=== PATIENT | female | born 1935 | race Caucasian/White ===

== ENCOUNTER 2016-11-17 09:23 | Emergency (ER) | payer MEDICARE ==
[~2016-11-17] VITALS: Ht 172.7 cm; Wt 62.0 kg
[~2016-11-17 09:23] MED LIST: ASPI325T PO; CITA20TA4 PO; CYMB30CA PO; DOXE10 PO; FISH1000 PO; LANTUSP SQ; LIPI40TA PO; LISI-366 PO; OMPR20CCR PO
[2016-11-17 09:27] VITALS: BP 139/66; PULSE 66; RESP 18; TEMP 97.7; O2SAT 100
[2016-11-17] MEDS ORDERED: LEVEMIR SQ (10:03)
[2016-11-17] MEDS ORDERED: TRAZ50TA12 PO (10:03)
[2016-11-17] MEDS ORDERED: ASPI81TA81 PO (10:03)
[2016-11-17] MEDS ORDERED: ASPI81CH CHEW (10:03)
[2016-11-17] MEDS ORDERED: LIPI40TA PO (10:03)
[2016-11-17] MEDS ORDERED: DULO20 PO (10:03)
[2016-11-17] MEDS ORDERED: LISI10TA PO (10:03)
[2016-11-17] MEDS ORDERED: PLAV75TA29 PO (10:03)
[2016-11-17] MEDS ORDERED: TRAM1CAP21 PO (10:03)
--- NOTE | 2016-11-17 10:09 | PD ---
HPI Chief Complaint: Musculoskeletal Complaint Time Seen by Provider: 09:59 Travel History International Travel<30 days: No Contact w/Intl Traveler<30days: No Traveled to known affect area: No History of Present Illness HPI This patient complains of injury to her left foot. Duration 12 hours. Severity is moderate. She has dropped a glass on top of her left foot and has bruising and swelling and pain there. Worse with weightbearing. PFSH Past Medical History Hx Anticoagulant Therapy: Yes (PLAVIX) Depression: Yes Cancer: Yes (UTERINE) Cardiovascular Problems: Yes (CABG X3, STENTS) High Cholesterol: Yes Diabetes: Yes Patient Takes Glucophage: No Diminished Hearing: No Endocrine: Yes Gastrointestinal Disorders: Yes (GERD) Genitourinary: No Hepatitis: No Hiatal Hernia: No Hypertension: Yes Immune Disorder: No Medical other: No Musculoskeletal: Yes (ARTHRITIS, BACK FUSION) Neurologic: Yes (NEUROPATHY FEET) Psychiatric: No Reproductive: Yes (HX UTERINE CA) Respiratory: No Immunizations Current: Yes Thyroid Disease: No ?: Not Menopausal: Yes Past Surgical History Abdominal Surgery: Yes (CHOLECYSTECTOMY) AICD: No Appendectomy: Yes Cardiac Surgery: Yes (CABG) Cholecystectomy: Yes Coronary Stent: Yes Eye Surgery: Yes (BUIL. CATARACT EXTRACT.) Gynecologic Surgery: Yes (HYSTERECTOMY) Hysterectomy: Yes (30 YEARS AGO) Joint Replacement: No Neurologic Surgery: Yes (BACK SX (X3) & LUMBAR FUSION) Pacemaker: No Tonsillectomy: Yes Other Surgery: Yes (4 BACK SURGERIES) Social History Alcohol Use: Yes (SOCIAL) Tobacco Use: No Substance Use: No Allergies-Medications (Allergen,Severity, Reaction): Coded Allergies: Codeine (Verified Allergy, Intermediate, N/V/D, 11/17/16) Reported Meds & Prescriptions Reported Meds & Active Scripts Active Reported Levemir Inj (Insulin Detemir) 1,000 unit/ 10 ML Vial 20 Units SQ HS Do not mix with any other Insulin. Aspir-81 (Aspirin) 81 Mg Tabdr 1 Tab PO DAILY Aspirin 81 Mg Chew 81 Mg CHEW DAILY Trazodone (Trazodone HCl) 50 Mg Tab 50 Mg PO HS Plavix (Clopidogrel Bisulfate) 75 Mg Tab 75 Mg PO DAILY Cymbalta DR (Duloxetine HCl) 20 Mg Capdr 20 Mg PO DAILY Lisinopril-Hctz 10-12.5 Mg Tab 1 Tab PO DAILY Lipitor (Atorvastatin Calcium) 40 Mg Tab 40 Mg PO HS Tramadol ER 24 HR (Tramadol HCl) 100 Mg Caper 100 Mg PO DAILY Review of Systems General / Constitutional: No: Fever Cardiovascular: No: Chest Pain or Discomfort Respiratory: No: Cough Physical Exam Narrative Psych: Normal mood and affect. Normal insight and judgment. SKIN: Focused skin assessment reveals no rash or ulcers. Skin is warm and dry. Palpation shows no induration or nodules. Left foot: Has diminished sensation from diabetic neuropathy which is chronic. She has swelling and bruising over the dorsum of the foot with tenderness. No open wound. Data Data Last Documented VS Vital Signs Date Time Temp Pulse Resp B/P Pulse Ox O2 Delivery O2 Flow Rate FiO2 11/17/16 09:27 97.7 66 18 139/66 100 Orders Foot, Complete ([id number]) (11/17/16 ) [facility] Medical Decision Making Medical Screen Exam Complete: Yes Emergency Medical Condition: Yes Medical Record Reviewed: Yes Differential Diagnosis Foot fracture, foot contusion, ankle dislocation. Narrative Course I have reviewed the patient's electronic medical record. I reviewed her left foot x-rays which show a fracture of the left third metatarsal and questionable hairline fracture of the fourth metatarsal. I placed her in a posterior short-leg splint. She is going to use a walker to keep weight off it. She will ice and elevate. She has tramadol at home and does not want other prescriptions because she has baseline unsteadiness and does not want to be drowsy. Will call orthopedist on Saturday for follow-up Diagnosis Primary Impression: Metatarsal stress fracture of left foot Qualified Code: M84.375A - Metatarsal stress fracture of left foot, initial encounter Additional Instructions: Call orthopedist Saturday morning for follow-up Ice and elevate left foot No weightbearing on left foot Use walker Med/Other Pt SpecificInfo: Other Disposition: 01 DISCHARGE HOME Condition: Stable Lm Amaya MD Nov 17, 2016 10:09
--- NOTE | 2016-11-17 10:55 | RADHPO ---
EXAM DATE/TIME: 11/17/2016 10:33 [facility] COMPARISON: No previous studies available for comparison. INDICATIONS : Fell last night , left foot pain MEDICAL HISTORY : Diabetes mellitus type II. SURGICAL HISTORY : None. ENCOUNTER: Initial ACUITY: 1 day PAIN SCORE: 10/10 LOCATION: Left foot FINDINGS: Mild dorsal soft tissue swelling. Plantar and posterior calcaneal spurs. Transverse fracture, mildly displaced to the base of the third metatarsal. CONCLUSION: Third metatarsal fracture. A nondisplaced fracture through the base of the fourth metatarsal is also suspected. Gerardo Goel MD on November 17, 2016 at 10:52 Board Certified Radiologist. This report was verified electronically.
== END 2016-11-17 11:36 | disposition home or self-care (01) ==
LOC: PHED 09:23 → PHEFT 11:36
DX: M84.375A Stress fracture, left foot, initial encounter for fracture (principal)
CPT/HCPCS: 29515; 73630

== ENCOUNTER 2017-05-16 06:37 | Emergency (ER) | payer MEDICARE ==
[~2017-05-16] VITALS: Ht 172.7 cm; Wt 58.3 kg
[~2017-05-16 06:37] MED LIST changes: +ASPI-516 CHEW; -ASPI325T PO; +ASPI81TA81 PO; -CITA20TA4 PO; -CYMB30CA PO; -DOXE10 PO; +DULO20 PO; -FISH1000 PO; -LANTUSP SQ; +LEVEMIR SQ; -LISI-366 PO; +LISI10TA PO; -OMPR20CCR PO; +PLAV75TA29 PO; +TRAM1CAP21 PO; +TRAZ50TA12 PO
[2017-05-16 06:50] VITALS: BP 206/85; PULSE 60; RESP 20; TEMP 98.3; O2SAT 100
[2017-05-16 07:25] VITALS: O2SAT 100
--- NOTE | 2017-05-16 07:27 | PD ---
HPI Chief Complaint: Pain: Acute or Chronic Time Seen by Provider: 07:09 Travel History International Travel<30 days: No Contact w/Intl Traveler<30days: No Traveled to known affect area: No History of Present Illness HPI 81-year-old female patient with history dementia, diabetes, hypertension, CAD status post CABG and stents, diabetic neuropathy, restless leg syndrome, presents to the ER today brought in by her daughter because she has complained for several weeks of bilateral leg discomfort especially at night, abdominal discomfort, and her daughter states that she has had decreased appetite, has had a temperature weight loss in 2 and half months. She states that she was seen last week at [facility] and had been diagnosed with bronchitis, put on amoxicillin, but she has not really been taking it much because she's not eating as well. She states that the patient had vomiting several days ago, fever several days ago but the fevers have subsided. She is concerned because the patient has not been willing to eat and is still continued to complain of abdominal discomfort. Patient could not rate how bad her pain is. Modifying Factors: None Associated Signs & Symptoms: Abdominal discomfort, nausea, vomiting, poor by mouth intake, restless legs and discomfort Risk Factors: Dementia, restless leg syndrome, diabetic with neuropathy PFSH Past Medical History Hx Anticoagulant Therapy: Yes (PLAVIX) Depression: Yes Cancer: Yes (UTERINE) Cardiovascular Problems: Yes (CABG X3, STENTS) High Cholesterol: Yes Diabetes: Yes Diminished Hearing: No Endocrine: Yes Gastrointestinal Disorders: Yes (GERD) Genitourinary: No Hepatitis: No Hiatal Hernia: No Hypertension: Yes Immune Disorder: No Musculoskeletal: Yes (ARTHRITIS, BACK FUSION) Neurologic: Yes (NEUROPATHY FEET) Psychiatric: No Reproductive: Yes (HX UTERINE CA) Respiratory: No Immunizations Current: Yes Thyroid Disease: No Menopausal: Yes Past Surgical History Abdominal Surgery: Yes (CHOLECYSTECTOMY) AICD: No Appendectomy: Yes Cardiac Surgery: Yes (CABG) Cholecystectomy: Yes Coronary Stent: Yes Eye Surgery: Yes (BUIL. CATARACT EXTRACT.) Gynecologic Surgery: Yes (HYSTERECTOMY) Hysterectomy: Yes (30 YEARS AGO) Joint Replacement: No Neurologic Surgery: Yes (BACK SX (X3) & LUMBAR FUSION) Pacemaker: No Tonsillectomy: Yes Other Surgery: Yes (4 BACK SURGERIES) Social History Alcohol Use: Yes (SOCIAL) Tobacco Use: No Substance Use: No Allergies-Medications (Allergen,Severity, Reaction): Coded Allergies: codeine (Unverified Allergy, Intermediate, N/V/D, 05/16/17) Reported Meds & Prescriptions Reported Meds & Active Scripts Active Zofran Odt (Ondansetron Odt) 4 Mg Tab 4 Mg SL Q6HR PRN Lortab (Hydrocodone-Acetaminophen) 5-325 Mg Tab 1 Tab PO Q6H PRN Reported Effexor (Venlafaxine HCl) 100 Mg Tab 100 Mg PO DAILY Levemir Inj (Insulin Detemir) 1,000 unit/ 10 ML Vial 20 Units SQ HS Do not mix with any other Insulin. Aspir-81 (Aspirin) 81 Mg Tabdr 1 Tab PO DAILY Trazodone (Trazodone HCl) 50 Mg Tab 50 Mg PO HS Plavix (Clopidogrel Bisulfate) 75 Mg Tab 75 Mg PO DAILY Cymbalta DR (Duloxetine HCl) 20 Mg Capdr 20 Mg PO DAILY Lisinopril-Hctz 10-12.5 Mg Tab 1 Tab PO DAILY Lipitor (Atorvastatin Calcium) 40 Mg Tab 40 Mg PO HS Tramadol ER 24 HR (Tramadol HCl) 100 Mg Caper 100 Mg PO DAILY Review of Systems Except as stated in HPI: all other systems reviewed are Neg Physical Exam Narrative GENERAL: Well-developed elderly white female patient currently in moderate distress, fairly anxious, awake and oriented 3. History is as per daughter. SKIN: Focused skin assessment warm/dry. HEAD: Atraumatic. Normocephalic. EYES: Pupils equal and round. No scleral icterus. No injection or drainage. ENT: No nasal bleeding or discharge. Mucous membranes pink and moist. NECK: Trachea midline. No JVD. CARDIOVASCULAR: Regular rate and rhythm. No murmur appreciated. RESPIRATORY: No accessory muscle use. Clear to auscultation. Breath sounds equal bilaterally. GASTROINTESTINAL: Abdomen soft, non-tender, nondistended. Hepatic and splenic margins not palpable. MUSCULOSKELETAL: No obvious deformities. No clubbing. No cyanosis. No edema. EXTREMITIES: No clubbing, cyanosis, or edema. No joint tenderness, effusion, or edema noted. No calf tenderness. Bilateral Homans sign negative. NEUROLOGICAL: Awake and alert. No obvious cranial nerve deficits. Motor grossly within normal limits. Normal speech. PSYCHIATRIC: Appropriate mood and affect; insight and judgment normal. Data Data Last Documented VS Vital Signs Date Time Temp Pulse Resp B/P (MAP) Pulse Ox O2 Delivery O2 Flow Rate FiO2 05/16/17 10:16 56 16 141/64 (89) 100 Room Air 05/16/17 06:50 98.3 Orders Orders Complete Blood Count With Diff (05/16/17 07:21) Comprehensive Metabolic Panel (05/16/17 07:21) Lipase (05/16/17 07:21) Urinalysis - C+S If Indicated (05/16/17 07:21) Ct Abd/Pel W Iv Contrast(Rout) (05/16/17 07:21) Iv Access Insert/Monitor (05/16/17 07:21) Ecg Monitoring (05/16/17 07:21) Oximetry (05/16/17 07:21) Sodium Chloride 0.9% Flush (Ns Flush) (05/16/17 07:30) Sodium Chlorid 0.9% 500 Ml Inj (Ns 500 M (05/16/17 07:30) Haloperidol Inj (Haldol Inj) (05/16/17 07:30) Iohexol 350 Inj (Omnipaque 350 Inj) (05/16/17 08:30) Labs Laboratory Tests Test 05/16/17 07:40 05/16/17 08:10 White Blood Count 4.4 TH/MM3 Red Blood Count 4.04 MIL/MM3 Hemoglobin 12.9 GM/DL Hematocrit 38.0 % Mean Corpuscular Volume 94.0 FL Mean Corpuscular Hemoglobin 32.0 PG Mean Corpuscular Hemoglobin Concent 34.1 % Red Cell Distribution Width 12.3 % Platelet Count 180 TH/MM3 Mean Platelet Volume 8.6 FL Neutrophils (%) (Auto) 54.5 % Lymphocytes (%) (Auto) 25.6 % Monocytes (%) (Auto) 12.4 % Eosinophils (%) (Auto) 6.5 % Basophils (%) (Auto) 1.0 % Neutrophils # (Auto) 2.4 TH/MM3 Lymphocytes # (Auto) 1.1 TH/MM3 Monocytes # (Auto) 0.6 TH/MM3 Eosinophils # (Auto) 0.3 TH/MM3 Basophils # (Auto) 0.0 TH/MM3 CBC Comment DIFF FINAL Differential Comment Blood Urea Nitrogen 21 MG/DL Creatinine 1.20 MG/DL Random Glucose 144 MG/DL Total Protein 7.0 GM/DL Albumin 3.5 GM/DL Calcium Level 8.9 MG/DL Alkaline Phosphatase 120 U/L Aspartate Amino Transf (AST/SGOT) 21 U/L Alanine Aminotransferase (ALT/SGPT) 32 U/L Total Bilirubin 0.5 MG/DL Sodium Level 137 MEQ/L Potassium Level 4.0 MEQ/L Chloride Level 103 MEQ/L Carbon Dioxide Level 26.7 MEQ/L Anion Gap 7 MEQ/L Estimat Glomerular Filtration Rate 43 ML/MIN Lipase 466 U/L Urine Collection Type CLEAN CATCH Urine Color YELLOW Urine Turbidity CLEAR Urine pH 6.0 Urine Specific [place] 1.015 Urine Protein NEG mg/dL Urine Glucose (UA) NEG mg/dL Urine Ketones NEG mg/dL Urine Occult Blood TRACE Urine Nitrite NEG Urine Bilirubin NEG Urine Leukocyte Esterase NEG Urine RBC 0-3 /hpf Urine WBC 0-2 /hpf Urine Squamous Epithelial Cells 0-5 /hpf Microscopic Urinalysis Comment CULT NOT INDICATED Urine Collection Time 08:10 [facility] Medical Decision Making Medical Screen Exam Complete: Yes Emergency Medical Condition: Yes Medical Record Reviewed: Yes Interpretation(s) Laboratory Tests Test 05/16/17 07:40 05/16/17 08:10 Monocytes (%) (Auto) 12.4 % (0.0-8.0) Eosinophils (%) (Auto) 6.5 % (0.0-4.0) Blood Urea Nitrogen 21 MG/DL (7-18) Creatinine 1.20 MG/DL (0.50-1.00) Random Glucose 144 MG/DL (74-106) Alkaline Phosphatase 120 U/L (45-117) Estimat Glomerular Filtration Rate 43 ML/MIN (>89) Lipase 466 U/L (73-393) Differential Diagnosis Restless leg syndrome versus dehydration versus metabolic issues versus diverticulitis versus constipation versus acute intra-abdominal processes Narrative Course Lab work shows mild pancreatic enzyme elevations questionable for mild pancreatitis. CAT scan did not show any signs of acute processes. At this point, plan would be to release the patient with close follow-up to primary care doctor. This appears to be more of a chronic issue and a appearance of her restless leg syndrome. The plan was discussed with the patient and she states understanding. I will give her some medications to help with discomfort and nausea vomiting. Diagnosis Primary Impression: Pancreatitis Med/Other Pt SpecificInfo: Prescription(s) given Scripts Ondansetron Odt (Zofran Odt) 4 Mg Tab 4 MG SL Q6HR Y for Nausea/Vomiting, #7 TAB 0 Refills Prov: Storm Manley MD 05/16/17 Hydrocodone-Acetaminophen (Lortab) 5-325 Mg Tab 1 TAB PO Q6H Y for PAIN, #15 TAB 0 Refills Prov: Storm Manley MD 05/16/17 Disposition: 01 DISCHARGE HOME Condition: Stable Storm Manley MD May 16, 2017 07:26
[2017-05-16] MEDS ORDERED: SODIUM CHLORID 0.9% 500 ML INJ 500 ML IV ONE (07:30)
[2017-05-16] MEDS ORDERED: HALOPERIDOL LACTATE 5 MG/ML AMP IM ONE (07:30)
[2017-05-16] MEDS ORDERED: SODIUM CHLORIDE 0.9% FLUSH 10 ML FLUSH IV FLUSH PRN (07:30)
[2017-05-16] MEDS ORDERED: VENL100T PO (07:31)
[2017-05-16 07:45] LABS: AUTOMATED NEUTROPHIL # 2.4 TH/MM3 (1.8-7.7); EOSINOPHIL # 0.3 TH/MM3 (0-0.4); EOSINOPHIL % 6.5 % (0.0-4.0); HEMOGLOBIN 12.9 GM/DL (11.6-15.3); LYMPH % 25.6 % (9.0-44.0); LYMPHOCYTE # 1.1 TH/MM3 (1.0-4.8); MEAN CORPUSCULAR HGB CONC 34.1 % (32.0-36.0); MEAN PLATELET VOLUME 8.6 FL (7.0-11.0); MONO % 12.4 % (0.0-8.0); MONOCYTE # 0.6 TH/MM3 (0-0.9); NEUT % 54.5 % (16.0-70.0); PLATELET COUNT 180 TH/MM3 (150-450); RED BLOOD COUNT 4.04 MIL/MM3 (4.00-5.30); RED CELL DISTRIBUTION WIDTH 12.3 % (11.6-17.2); WHITE BLOOD COUNT 4.4 TH/MM3 (4.0-11.0)
[2017-05-16 07:53] LABS: CHLORIDE 103 MEQ/L (98-107); SODIUM (NA) 137 MEQ/L (136-145)
[2017-05-16 07:56] LABS: CALCIUM 8.9 MG/DL (8.5-10.1)
[2017-05-16 07:57] LABS: ALBUMIN 3.5 GM/DL (3.4-5.0); BICARBONATE 26.7 MEQ/L (21.0-32.0); BLOOD UREA NITROGEN 21 MG/DL (7-18); GLUCOSE,RANDOM 144 MG/DL (74-106); LIPASE 466 U/L (73-393)
[2017-05-16 08:00] LABS: ALT (GPT) 32 U/L (10-53); AST (GOT) 21 U/L (15-37); GLOMERULAR FILTRATION RATE 43 ML/MIN (>89)
[2017-05-16 08:01] LABS: TOTAL BILIRUBIN ADULT 0.5 MG/DL (0.2-1.0)
[2017-05-16 08:03] LABS: ALKALINE PHOSPHATASE 120 U/L (45-117)
[2017-05-16 08:18] LABS: BILIRUBIN, URINE NEG (NEG); BLOOD, URINE TRACE (NEG); GLUCOSE,URINE NEG (NEG); KETONE, URINE NEG (NEG); NITRITE,URINE NEG (NEG); URINE LEUKOCYTE ESTERASE NEG (NEG)
[2017-05-16 08:20] VITALS: BP 173/81; PULSE 53; RESP 16; O2SAT 100
[2017-05-16 08:24] LABS: RBC, URINE 0-3 /hpf (0-3); SQUAMOUS EPITHELIAL CELL URINE 0-5 /hpf (0-5); URINE COLOR YELLOW (YELLW/STRAW); WBC, URINE 0-2 /hpf (0-5)
[2017-05-16] MEDS ORDERED: IOHEXOL 350 MG/ML 10 ML VIAL (for RAD DIAG) IVCONTRAST ONE (08:30)
--- NOTE | 2017-05-16 10:10 | RADRPT ---
EXAM DATE/TIME: 05/16/2017 08:26 [facility] COMPARISON: CT ABDOMEN & PELVIS W CONTRAST, August 24, 2011, 16:32. INDICATIONS : Diffuse abdominal discomfort. IV CONTRAST: 75 cc Omnipaque 350 (iohexol) IV ORAL CONTRAST: No oral contrast ingested. RADIATION DOSE: 6.74 CTDIvol (mGy) MEDICAL HISTORY : Gastroesophageal reflux disease. Diabetes mellitus type 2. Cardiovascular diseaseHypertension. Uteri ne cancer. SURGICAL HISTORY : Fusion, lumbar. Hysterectomy.Appendectomy.Cholecystectomy. CABG. ENCOUNTER: Initial ACUITY: 1 day PAIN SCALE: 2/10 LOCATION: Abdomen. TECHNIQUE: Volumetric scanning of the abdomen and pelvis was performed. Using automated exposure control and ad justment of the mA and/or kV according to patient size, radiation dose was kept as low as reasonably achievable to obtain optimal diagnostic quality images. DICOM format image data is available electro nically for review and comparison. FINDINGS: LOWER LUNGS: The visualized lower lungs are clear. LIVER: Homogeneous density without lesion. There is no dilation of the biliary tree. Previous cholecystecto my.. SPLEEN: Normal size without lesion. PANCREAS: Within normal limits. KIDNEYS: Normal in size and shape. There is no mass, stone or hydronephrosis. ADRENAL GLANDS: Within normal limits. VASCULAR: Aortoiliac atherosclerosis again noted. No aneurysm. BOWEL/MESENTERY: There is slower diverticulosis of the sigmoid colon. No acute inflammatory changes are seen. There is no bowel obstruction. No free air or free fluid. ABDOMINAL WALL: Within normal limits. RETROPERITONEUM: There is no lymphadenopathy. BLADDER: No wall thickening or mass. REPRODUCTIVE: Within normal limits. INGUINAL: There is no lymphadenopathy or hernia. MUSCULOSKELETAL: No acute bony abnormality demonstrated. Surgical and degenerative changes are again seen of the spine . CONCLUSION: 1. No obstruction or acute inflammatory changes are demonstrated. 2. Severe sigmoid colon diverticulosis without evidence of diverticulitis. 3. Tortuous and atherosclerotic abdominal aorta. No enters him. Eliezer Burks MD on May 16, 2017 at 10:05 Board Certified Radiologist. This report was verified electronically.
[2017-05-16 10:16] VITALS: BP 141/64; PULSE 56; RESP 16; O2SAT 100
[2017-05-16] MEDS ORDERED: ZOFR4TAB3 SL (10:17)
[2017-05-16] MEDS ORDERED: HYDR-3533 PO (10:17)
== END 2017-05-16 11:14 | disposition home or self-care (01) ==
LOC: PHED 06:37
DX: K85.90 Acute pancreatitis without necrosis or infection, unspecified (principal); G25.81 Restless legs syndrome; E11.9 Type 2 diabetes mellitus without complications; I10 Essential (primary) hypertension; Z79.02 Long term (current) use of antithrombotics/antiplatelets; Z79.4 Long term (current) use of insulin
CPT/HCPCS: 74177; 80053; 81001; 83690; 85025; 96360; 96372; 99285; J1630; J7040; Q9967